=== PATIENT | female | born 1965 | race Caucasian/White ===

== ENCOUNTER 2024-07-28 14:12 | Outpatient (REF) | payer OTHER, SELFPAY ==
--- OUTSIDE RECORDS SUMMARY | 2024-07-28 16:13 | XMS_ITS | Data Portability ---
Author Organization [place] - [facility], Allergy Address [address] [place] [address] Care Team Providers Care House Admin Name Role Phone NALINI ARSHAD Primary Care Provider Assessment No assessment recorded. Plan of Treatment Reminders Order Date Submit Date Provider Last Modified By Organization Details Last Modified Time Details Appointments None record ed. Lab None record ed. Referral None record ed. Procedures None record ed. Surgeries None record ed. Imaging None record ed. Medication Orders None record ed. Patient TargetsNo targets recorded. Patient InstructionsNo instructions recorded. Reason for Referral None Reported. Results Created Date Observation Date Name Description Value Unit Range Abnormal Flag Note LastModifiedBy Organization Detail LastModifiedTime 06/07/19 25 audio gram No observ ation record ed. BARCODE Not Available 2024 10:31:45 Result Notes None recorded. Problems Name Problem SNOMED Code Status Onset Date Resolution Date Notes Provider Name and Address Organization Details Recorded Time Sensorineur al hearing loss of bilateral ears 770871792 Active 2024 JOSE CAMACHO [address] [address], [place], [address], [facility] 5 15:01:05 Impacted cerumen in left ear 9682337424630 101 Active 2024 HERRERA MCKEON MD [address] [address], [place], [address], [facility] 5 15:48:35 Problem Notes None recorded. Procedures Surgical History Date Name Laterality Status Provider Name and Address Organization Details Recorded Time 5 Comp Audio with Tymps - 64370 & 97021 completed JOSE CAMACHO [address] [facility],[address] [address], [place], [address], [place] - [facility] 06/05/2024 15:00:57 Cerumen removal with microscope left completed HERRERA MCKEON MD [address] [facility],[address], [address], [place] - [facility] 06/05/2024 15:48:20 Imaging Results None recorded. Procedure Notes None recorded. Medical Equipment None Reported. Allergies No known drug allergies Medications Name Sig Start Date Stop Date Status Note LastModified by Organization Details LastModified Time atorvastatin 80 mg tablet TAKE 1 TABLET BY MOUTH DAILY active Not Available Not Available No t Available trazodone 50 mg tablet TAKE 0.5-1 TABLET BY MOUTH ONCE DAILY NIGHTLY NEEDED active Not Available Not Available No t Available amlodipine 2.5 mg tablet TALE 1 TABLET BY MOUTH ONCE DAILY active Not Available Not Available No t Available lorazepam 0.5 mg tablet TAKE ONE TABLET BY MOUTH EVERY DAY NEEDED active Not Available Not Available No t Available paroxetine 20 mg tablet TAKE ONE AND ONE-HALF TABLETS BY MOUTH EVERY DAY active Not Available Not Available No t Available lisinopril 30 mg tablet TAKE 1 TABLET BY MOUTH EVERY DAY active Not Available Not Available No t Available Therapeutic-M 9 mg iron-400 mcg tablet TAKE ONE TABLET BY MOUTH EVERY DAY active Not Available Not Available No t Available Vitals Date Recorded Body height Body weight Provider Name and Address Organization Details Last Updated DateTime 06/05/2024 167.64 cm 16317.63 g Shira Pandya [place] - [facility] 06/05/2024 15:30:28 Social History None recorded. Functional Status None recorded. Mental Status None recorded. Family History Nothing Reported. Medical History Condition Response Allergies/Hayfever Y Heart Problems N Anxiety Y Tonsil Infections N Emphysema N Migraines N Thyroid Problems N Depression Y COPD N Developmental Delay N Glaucoma N Nasal or Sinus Problems N Anemia N Immune System Disorder N Anesthesia Complications N Heart Attack ([place]) N Other Skin Condition N Diabetes N Rhinitis N Bleeding Disorder N Food Allergy N Hearing Loss Y Arthritis Y Hyperlipidemia N Cancer N Stroke N Dementia N Nasal polyps N Asthma N Sleep Disorder N High Cholesterol Y GERD/Reflux N Liver Disease N Headaches N Fibromyalgia N Hypertension Y Speech Delay N Kidney Disease N Gynecological HistoryNo gynecological history recorded. Obstetrics History GPAL:G 0 P 0 0 0 0 Past Encounters Encounter ID Performer Location Encounter Start Date Encounter Closed Date Diagnosis/Indication Diagnosis SNOMED-CT Code Diagnosis ICD10 Code Diagnosis Note [id number] HERRERA MCKEON MD [facility] [address] [address] 06/05/2024 14:23:48 06/05/2024 15:49:00 Sensorineural hearing loss of bilateral ears 710644818 H90.3 Right Ear:Normal hearing through 500 Hz sloping to a severe SNHL with excellent speech discrimina tion.Type Ad tympanogra m.Left Ear:Normal hearing through 250 Hz sloping to a severe SNHL with excellent speech discrimina tion.Type Ad tympanogra m.Patient' s audiogram shows bilateral moderate sensorineu ral hearing loss with well maintained speech discrimina tion. There is enough hearing loss to affect day-to-day hearing performanc e. We discussed in detail the pros and cons of amplificat ion (hearing aids). We discussed the connection between untreated hearing loss and increased risk of dementia, falling and accidents. After full discussion , the patient expressed interest in learning more about amplificat ion options. Accordingl y I have provided a copy of the audiogram, a list of [facility] hearing aid providers, and medical clearance for amplificat ion so the patient can pursue this at their convenienc e. Patient is medically cleared for amplificat ion bilaterall y. Impacted c erumen in left ear [id number] 089684 H61.22 Excess cerumen disimpacte d from the left ear under the binocular microscope today. Health Concerns Section Related Observation LastModified by Organization Detai ls LastModified Time None Recorded Concern Status LastModified by Organization Details LastModified Time None Recorded Advance Directives Directive None Recorded Payers Insurance Date Sequence Insurance Name Policy Number Policy Valdivia Covered Member ID Valdivia Member ID Guarantor Name 06/05/2024 1 [facility] - HEALTH NET PLAN (MEDICAID HMO) [id number] Tiny Morgan [id number] Tiny Morgan 06/05/2024 1 [place] [facility] Tiny Morgan [id number] Tiny A Eddie Notes Date Note Type Note Provider Name and Address Organization Details Recorded Time 06/05/2024 text/html Patient comes in for evaluation of hearing loss. Patient has been noticing difficulty hearing in a variety of different listening environments, particularly exacerbated by background noise. Hearing loss has been gradual over a period of 5 years. Patient notes occasional nonlocalizing tinnitus. No history of excessive noise exposure. 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 Patient comes in for audiometric testing and discussion of possible remedies for hearing loss. HERRERA MCKEON MD [address] [place] [address], [phone] - [facility] 06/05/2024 15:49:27 OBGyn Episode No OBEpisode recorded.
== END 2024-07-28 14:13 | disposition home or self-care (01) ==
LOC: HO.HAP 14:12
PROVIDERS: Visit Provider Internal Medicine
DX: Z46.1 Encounter for fitting and adjustment of hearing aid (principal); H90.3 Sensorineural hearing loss, bilateral
CPT/HCPCS: 92591

== ENCOUNTER 2024-08-06 14:38 | Outpatient (REF) | payer OTHER, SELFPAY ==
--- OUTSIDE RECORDS SUMMARY | 2024-08-06 16:50 | XMS_ITS | Data Portability ---
Author Organization [place] - [facility], [facility] Address [address] [place] [address] Care Team Providers Care Drop Wire Aliner Name Role Phone NALINI ARSHAD Primary Care Provider [phone] Assessment No assessment recorded. Plan of Treatment [...] Sensorineur al hearing loss of bilateral ears [id number] Active 2024 JOSE CAMACHO [address] [address], [place], [address], [facility] 5 15:01:05 Impacted cerumen in left ear [id number] 101 Active 2024 HERRERA MCKEON MD [address] [address], [place], [address], [facility] 5 15:48:35 Problem Notes None recorded. Procedures Surgical History Date Name Laterality Status Provider Name and Address Organization Details Recorded Time 5 Comp Audio with Tymps - 46414 & 02175 completed JOSE CAMACHO 100 [facility],[address] [address], [place], [address], [place] - [facility] 06/05/2024 15:00:57 Cerumen removal with microscope left completed HERRERA MCKEON MD 100 [facility],[address], [address], [place] - [facility] 06/05/2024 15:48:20 Imaging Results None recorded. Procedure [...] Details Last Updated DateTime 06/05/2024 167.64 cm 54314.63 g Shira Pandya [place] - [facility] 06/05/2024 15:30:28 Social History None recorded. Functional Status None recorded. Mental Status None recorded. Family History Nothing Reported. Medical History Condition Response Allergies/Hayfever Y Heart Problems N Anxiety Y Tonsil Infections N Emphysema N Migraines N Thyroid Problems N Glaucoma N Depression Y COPD N Developmental Delay N Nasal or Sinus Problems N Anemia N Immune System Disorder N Anesthesia Complications N Heart Attack ([place]) N Other Skin Condition N Diabetes N Rhinitis N Bleeding Disorder N Food Allergy N Arthritis Y Hearing Loss Y Hyperlipidemia N Cancer N Stroke N Dementia N Nasal polyps N Asthma N Sleep Disorder N GERD/Reflux N High Cholesterol Y Liver Disease N Headaches N Fibromyalgia N Hypertension Y Speech Delay N Kidney Disease N Gynecological HistoryNo gynecological history recorded. Obstetrics History GPAL:G 0 P 0 0 0 0 Past Encounters Encounter ID Performer Location Encounter Start Date Encounter Closed Date Diagnosis/Indication Diagnosis SNOMED-CT Code Diagnosis ICD10 Code Diagnosis Note [id number] HERRERA MCKEON MD [facility] [address] [address] 06/05/2024 14:23:48 06/05/2024 15:49:00 Sensorineural hearing loss of bilateral ears [id number] H90.3 Right Ear:Normal hearing through 500 Hz [...] copy of the audiogram, a list of [facility] hearing aid providers, and medical clearance for amplificat ion so the patient can pursue this at their convenienc e. Patient is medically cleared for amplificat ion bilaterall y. Impacted c erumen in left ear [id number] 156964 H61.22 Excess cerumen disimpacte d from the left ear under the binocular microscope today. Health Concerns Section Related Observation LastModified by Organization Detai ls LastModified Time None Recorded Concern Status LastModified by Organization Details LastModified Time None Recorded Advance Directives Directive None Recorded Payers Insurance Date Sequence Insurance Name Policy Number Policy Valdivia Covered Member ID Valdivia Member ID Guarantor Name 06/05/2024 1 [facility] - HEALTH NET PLAN (MEDICAID HMO) [id number] Tiny Morgan [id number] Tiny Morgan 06/05/2024 1 [place] [facility] Tiny Morgan [id number] Tiny A Eddie Notes Date Note Type [...] of excessive noise exposure. 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 Patient comes in for audiometric testing and discussion of possible remedies for hearing loss. HERRERA MCKEON MD [address] [place] [address], [phone] - [facility] 06/05/2024 15:49:27 OBGyn Episode No OBEpisode recorded.
== END 2024-08-06 14:39 | disposition home or self-care (01) ==
LOC: HO.HAP 14:38
PROVIDERS: Visit Provider Otolaryngology
DX: Z46.1 Encounter for fitting and adjustment of hearing aid (principal); H90.3 Sensorineural hearing loss, bilateral
CPT/HCPCS: V5011; V5020; V5160; V5261